=== PATIENT | male | born 1970 | race Caucasian/White ===

== ENCOUNTER 2020-07-17 14:43 | Emergency (ER) | payer MEDICAID, SELFPAY ==
[2020-07-17 15:48] VITALS: BP 135/88; PULSE 94; RESP 18; TEMP 36.7; O2SAT 98; BMI 41.3
--- NOTE | 2020-07-17 15:49 | ED_ITS ---
HPI - Dental/Oral General Stated complaint: CRACKED TOOTH Time Seen by Provider: 07/17/20 15:33 Source: patient Mode of arrival: ambulatory Limitations: no limitations History of Present Illness HPI Narrative: 49-year-old male presenting to the ED with complaints of a crack tooth while eating an egg roll prior to arrival. Reports that he does not have a dentist that he can follow-up with. Denies any other complaints or concerns at this time. MD Complaint: tooth injury Teeth map: 1. Onset (ago): minute(s) (Prior to arrival) Duration: constant Severity: mild Relieving factors: nothing Exacerbating factors: chewing Context: history of dental caries, poor dental care and other (Patient only has approximately 2-3 teeth in his entire mouth) Treatment prior to arrival: none Related Data Previous Rx's Medication Instructions Recorded acetaminophen [Tylenol Extra 1,000 mg PO QID PRN #14 tab 07/17/20 Strength] clindamycin HCl 600 mg PO TID 10 Days #60 cap 07/17/20 oxycodone 5 mg PO BID PRN #10 tab 07/17/20 Allergies Allergy/AdvReac Type Severity Reaction Status Date / Time NSAIDS (Non-Steroidal Allergy Unknown Verified 07/17/20 15:57 Anti-Inflamma Penicillins Allergy Unknown Verified 07/17/20 15:56 Review of Systems Review of Systems: Constitutional : No Fever, No Chills, No changes in PO intake, No difficulty speaking, no recent dental procedure, no heat or cold intolerance while eating, no recent face trauma, ENT/Mouth : + Dental pain, No Sore throat, No Jaw pain, No throat swelling, No swallowing difficulty, no change in voice, No facial swelling, no drooling, no trismus, no bleeding, no lacerations, no tongue swelling, gum swelling, Eyes: No Eye Pain, No periorbital Swelling Cardiovascular : No Chest Pain, No SOB Respiratory : No Cough, No Sputum, No Wheezing, No Smoke Exposure, No Dyspnea Gastrointestinal : No Nausea, No Vomiting, No Diarrhea Genitourinary : No Dysuria Musculoskeletal : No Myalgias Skin : No rash, no facial swelling or redness, Neuro : No Weakness, No Numbness, No Headache Yes all other systems are reviewed and are negative PMFSH Past Medical History Attestation statement: The following information was validated with the patient. Medical History (Updated 07/17/20 @ 15:51 by ORIANA Lunsford) Diabetes HTN (hypertension) Social History Social History Advance Directives: No Advance Directives Information Provided: No Physical Exam Vital Signs: Vital Signs: vital signs have been reviewed as normal and appeared to be correct. Blood pressure normal. Heart rate normal. Respiration rate normal. Temperature normal. Oxygen saturation normal. Appearance: Alert. Oriented X3. No acute distress. Head: Normal external exam. Normocephalic. Atraumatic. Eyes: PERRLA. EOMI. Conjunctiva and sclera normal. Eyelids normal. ENT: EAC normal. TM's Normal. Pharynx normal. Uvula midline. Moist mucous membranes. No trismus noted. No drooling noted. No muffled voice noted. Dentition: Patient with poor dentition throughout with only approximately 2-3 t eeth in his entire mouth with multiple old fractured teeth with multiple dental caries. Gingival within normal limits. No fluctuance. Not consistent with peritonsillar abscess. Not consistent with dental abscess. No salivary duct obstruction noted. Neck: Normal inspection. Neck supple. FROM. No adenopathy. Thyroid Normal. No meningeal signs. No neck mass noted. Trachea midline. CVS: Normal heart rate and rhythm. Heart sound normal. No murmurs noted. Pulses normal throughout. Respiratory: No respiratory distress. Painless inspiration. Breath sounds normal. No wheezes/rales/rhonchi noted. Chest nontender. No accessory muscle usage noted or decreased air movement noted. Back: Full range of motion noted. Skin: Skin warm and dry. Normal skin color. Normal skin turgor. No rashes/les ions/lacerations noted. Extremities:Extremities exhibit normal range of motion. Extremities nontender. Neuro: Oriented X 3. No motor deficit. No sensory deficit. Reflexes normal. MDM - Dental/Oral Medical Records Attestation: I reviewed the patient's medical records. Discharge Plan Discharge Clinical Impression: Toothache, Dental caries, Fracture of tooth Patient Disposition: Home, Self-Care Instructions: Acute Dental Trauma (ED), Toothache (ED) Prescriptions: New acetaminophen [Tylenol Extra Strength] 500 mg tablet 1,000 mg PO QID PRN (Reason: fever or pain) Qty: 14 RF: 0 oxycodone 5 mg tablet 5 mg PO BID PRN (Reason: pain) Qty: 10 RF: 0 clindamycin HCl 300 mg capsule 600 mg PO TID 10 Days Qty: 60 RF: 0 Referrals: Physician,None [Primary Care Provider] - 2 days (Your oral surgeon I gave you a copy of multiple different dentist you can follow up with) Print Language: Citizen Of [place]
== END 2020-07-17 16:09 | disposition home or self-care (01) ==
PROVIDERS: Emergency Provider Emergency Medicine
DX: K03.81 Cracked tooth (principal); K02.9 Dental caries, unspecified; I10 Essential (primary) hypertension; Z79.899 Other long term (current) drug therapy
CPT/HCPCS: 99283

== ENCOUNTER 2020-12-24 09:19 | Outpatient (REF) | payer MEDICAID, SELFPAY ==
--- NOTE | ~2020-12-24 | XR_ITS ---
EXAMINATION: XR HIP, LEFT XR LUMBAR SPINE CLINICAL INFORMATION: Back and left hip pain. COMPARISON: None TECHNIQUE: 2 views of the left hip and 3 views of the lumbar spine study. FINDINGS: LEFT HIP: Two views of the left hip do not demonstrate any evidence of acute fracture or dislocation. There is some increased sclerosis to the superior acetabulum with subchondral cyst formation. Joint space is maintained. No destructive lesions are seen involving the left femoral head. LUMBAR SPINE: There are 5 non-rib bearing lumbar vertebra. No acute fracture or definite spondylolysis is identified. There is grade 1 spondylolisthesis L5-S1. There is mild narrowing of the L5-S1 disc space with bilateral facet arthropathy present at L4-L5 and L5-S1 which is more significant at the L5-S1 level. No evidence of effusion or widening of the sacroiliac joints. XR/XR hip LT min 2V IMPRESSION: LUMBAR SPINE: Lumbar spondylosis L4 through S1 as described. LEFT HIP: Mild degenerative change superior left hip joint.
--- NOTE | ~2020-12-24 | XR_ITS ---
EXAMINATION: XR HIP, LEFT XR LUMBAR SPINE CLINICAL INFORMATION: Back and left hip pain. COMPARISON: None TECHNIQUE: 2 views of the left hip and 3 views of the lumbar spine study. FINDINGS: LEFT HIP: Two views of the left hip do not demonstrate any evidence of acute fracture or dislocation. There is some increased sclerosis to the superior acetabulum with subchondral cyst formation. Joint space is maintained. No destructive lesions are seen involving the left femoral head. LUMBAR SPINE: There are 5 non-rib bearing lumbar vertebra. No acute fracture or definite spondylolysis is identified. There is grade 1 spondylolisthesis L5-S1. There is mild narrowing of the L5-S1 disc space with bilateral facet arthropathy present at L4-L5 and L5-S1 which is more significant at the L5-S1 level. No evidence of effusion or widening of the sacroiliac joints. XR/XR lumbar spine 2-3V IMPRESSION: LUMBAR SPINE: Lumbar spondylosis L4 through S1 as described. LEFT HIP: Mild degenerative change superior left hip joint.
== END 2020-12-24 09:20 | disposition home or self-care (01) ==
LOC: HO.XRAY 09:19
PROVIDERS: PCP Family Medicine; Visit Provider Nurse Practitioner Family
DX: M47.816 Spondylosis without myelopathy or radiculopathy, lumbar region (principal); M25.552 Pain in left hip
CPT/HCPCS: 72100; 73502; 99202

== ENCOUNTER → 2021-01-07 12:04 | Outpatient (BNVA) | payer MEDICAID, SELFPAY | PROVIDERS: PCP Family Medicine; Visit Provider Nurse Practitioner Family ==

== ENCOUNTER 2021-02-15 06:26 | Outpatient (REF) | payer MEDICAID, SELFPAY ==
--- NOTE | ~2021-02-15 | FL_ITS ---
EXAMINATION: XR FLUOROSCOPY WITH IMAGES CLINICAL INFORMATION: M47.816 - Spondylosis without myelopathy or radiculopathy COMPARISON: Radiographs lumbar spine 12/24/2020 TECHNIQUE: Fluoroscopy performed by Dr. Jareth Gómez. Fluoroscopy time: 0.8 minutes DAP: 7.1 Gycm2 Images: 7 FINDINGS: There are spinal needles overlying the bilateral outer L3, L4, and L5 neural foramen. There is contrast seen in the respective nerve sheaths. Some early transforaminal epidural extension is suggested. No visible vascular communication. FL/FL guidance in treatment room IMPRESSION: Fluoroscopy for pain management procedures.
== END 2021-02-15 06:27 | disposition home or self-care (01) ==
LOC: HO.RADIR 06:26
PROVIDERS: Visit Provider Anesthesiology
DX: M47.816 Spondylosis without myelopathy or radiculopathy, lumbar region (principal); M25.552 Pain in left hip
CPT/HCPCS: 64493; 64494; J3300; Q9967

== ENCOUNTER → 2021-02-22 11:36 | Outpatient (BNVA) | payer MEDICAID, SELFPAY | PROVIDERS: PCP Family Medicine; Visit Provider Nurse Practitioner Family ==

== ENCOUNTER 2021-03-29 05:51 | Outpatient (REF) | payer MEDICAID, SELFPAY ==
--- NOTE | ~2021-03-29 | FL_ITS ---
EXAMINATION: XR FLUOROSCOPY WITH IMAGES CLINICAL INFORMATION: M53.3 - Sacrococcygeal disorders, not elsewhere classified COMPARISON: Fluoroscopic spot projections 02/15/2021 TECHNIQUE: Fluoroscopy performed by Dr. Jareth Gómez. Fluoroscopy time: 0.3 minutes DAP: 6.22 Gycm2 Images: 2 FINDINGS: Spinal needle overlies lower bilateral SI joints. There is contrast in the periarticular soft tissues with probable early intra-articular contrast. No vasculature communication appreciated. FL/FL guidance in treatment room IMPRESSION: Fluoroscopy for pain management procedure.
== END 2021-03-29 05:52 | disposition home or self-care (01) ==
LOC: HO.RADIR 05:51
PROVIDERS: Visit Provider Anesthesiology
DX: M53.3 Sacrococcygeal disorders, not elsewhere classified (principal); E11.9 Type 2 diabetes mellitus without complications; I10 Essential (primary) hypertension; Z88.0 Allergy status to penicillin; Z88.8 Allergy status to other drugs, medicaments and biological substances
CPT/HCPCS: J3300; Q9967